=== PATIENT | female | born 1980 ===

== ENCOUNTER 2017-10-12 00:37 | Emergency (ER) | payer OTHER ==
[2017-10-12 00:43] VITALS: RESP 18; O2SAT 96
[2017-10-12 01:06] LABS: SQUAMOUS EPITHIAL 6 /hpf (0-5); URINE BACTERIA RARE (<OCC); URINE BILIRUBIN NEGATIVE (NEGATIVE); URINE BLOOD NEGATIVE (NEGATIVE); URINE CLARITY Clear (Clear); URINE COLOR Straw (YELLOW); URINE GLUCOSE (UA) 3+ mg/dL (Normal); URINE LEUKOCYTE ESTERASE TRACE Leu/uL (Negative); URINE PROTEIN NEGATIVE (NEGATIVE); URINE UROBILINOGEN NORMAL mg/dL (0.2-1.0)
[2017-10-12 01:11] LABS: HCG,QUALITATIVE URINE NEGATIVE (NEGATIVE)
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
[2017-10-12] MEDS ORDERED: Emtricitabine-Tenofovir 200 mg-300 mg Tab PO STA (02:36)
[2017-10-12] MEDS ORDERED: cefTRIAXone (Rocephin) 250 mg Inj IM STA (02:36)
[2017-10-12] MEDS ORDERED: Emtricitabine-Tenofovir 200 mg-300 mg Tab PO NR (02:45)
[2017-10-12 03:14] VITALS: BP 123/79; PULSE 78; TEMP 98
== END 2017-10-12 03:16 | disposition home or self-care (01) ==
LOC: C.ER 00:37
DX: Z04.41 Encounter for examination and observation following alleged adult rape (principal)
CPT/HCPCS: 81001; 84703; 86592; 86703; 86706; 96372; 99285; J0696